=== PATIENT | male | born 1980 | race Caucasian/White ===

== ENCOUNTER 2017-01-05 06:15 | Emergency (ER) | payer BC, OTHER | END 2017-01-05 08:07 | disposition home or self-care (01) | LOC: ER 06:15 | DX: M79.1 Myalgia (principal); V47.5XXA Car driver injured in collision with fixed or stationary object in traffic accident, initial encounter; Y92.410 Unspecified street and highway as the place of occurrence of the external cause; R91.8 Other nonspecific abnormal finding of lung field; J32.9 Chronic sinusitis, unspecified; Z79.899 Other long term (current) drug therapy | CPT/HCPCS: 70450; 71250; 72125; 73030; 99284-25 ==

== ENCOUNTER 2017-01-26 10:15 | Emergency (ER) | payer BC, OTHER | END 2017-01-26 11:08 | disposition home or self-care (01) | LOC: ER 10:15 | DX: J45.909 Unspecified asthma, uncomplicated (principal); M54.6 Pain in thoracic spine; F41.9 Anxiety disorder, unspecified; I10 Essential (primary) hypertension; Z79.899 Other long term (current) drug therapy | CPT/HCPCS: 94664; 99283-25 ==